=== PATIENT | male | born 1960 ===

== ENCOUNTER 2016-10-17 10:48 | Emergency (ER) | payer OTHER ==
[2016-10-17 10:58] VITALS: BP 163/82
[2016-10-17] MEDS ORDERED: Sodium Chloride 0.9% 1,000 ML IV ONE ×2 (11:36→12:43)
[2016-10-17] MEDS ORDERED: Sodium Chloride 0.9% 10 ML Syringe FLUSH PRN (11:37)
--- NOTE | 2016-10-17 11:41 | EDM.PDOC ---
ED HPI GENERAL MEDICAL PROBLEM - General Chief Complaint: Gastrointestinal Problem Stated Complaint: DIABETIC REACTION Time Seen by Provider: 10/17/16 11:20 Source of Information: Reports: Patient, Old records (recent clinic visit from ) History Limitations: Reports: No limitations - History of Present Illness INITIAL COMMENTS - FREE TEXT/NARRATIVE: 56-year-old male presents for evaluation and treatment of nausea, vomiting, lightheadedness and dizziness. Patient is a type II diabetic. He states that he took his blood sugar at his hotel prior to arrival in the ER and was 372 which prompted his visit today. Patient is not on insulin but is on oral medications for his diabetes. He states his blood sugars normally range in the 90s to low 200s. He denies any recent infection. Current symptoms include nausea, vomiting , lightheadedness, dizziness, feeling jittery and polydipsia. He denies any polyuria, sore throat, earaches or pains, abdominal pain or diarrhea. Patient reports that he had some coffee and some orange juice this morning. Patient was seen in our walk-in clinic yesterday. Was seen for right knee pain. He describes the pain to the lateral right leg. He also reports that he has been having trouble completely extending the knee do to "tightness "in his calf. Patient is from [place] and is here for work. On Wednesday he arrived after a [address] from [place]. He has also noticed some swelling to the anterior , superior and lateral portions of the knee. He's also noticed some numbness along the lateral aspect of his knee but felt this was likely from sciatica. Patient reports in June he fell down some stairs. He was not evaluated for this and ever since then he has had a slight ache to the knee. He feels this is what was causing his knee pain this week. Patient was prescribed some naproxen and tramadol from the walk-in. He last took a tramadol around 5:00 this morning. The patient is scheduled to go home to [place] next Wednesday. - Related Data Allergies Allergy/AdvReac Type Severity Reaction Status Date / Time Penicillins Allergy Rash Verified 10/17/16 10:58 Home Meds: Home Meds Acetaminophen with Codeine [Tylenol with Codeine #3 Tablet] 1 each PO Q6HR #15 tablet 04/29/17 [Rx] Blood Pressure. 10/17/16 [History] atorvaSTATin [Lipitor] 20 mg PO DAILY 10/17/16 [History] metFORMIN [Glucophage] 1,000 mg PO BID 10/17/16 [History] ED ROS GENERAL - Review of Systems Review Of Systems: See Below Constitutional: Reports: malaise, diaphoresis. Denies: fever HEENT: Denies: Ear pain, Sinus problem Endocrine: Reports: high glucose, polydypsia. Denies: polyuria GI/Abdominal: Reports: Nausea, Vomiting. Denies: Abdominal pain, Diarrhea Musculoskeletal: Reports: leg pain (right lateral leg), joint pain (right knee) , joint swelling (right anterior knee superior and lateral) Neurological: Reports: Numbness (right lateral leg) ED EXAM, GENERAL - Physical Exam Exam: See Below Exam Limited By: No limitations General Appearance: alert, WD/WN, no apparent distress Ears: normal external exam Nose: normal inspection Throat/Mouth: Normal inspection, Normal lips, Normal teeth, Normal voice, No airway compromise Neck: normal inspection Respiratory/Chest: no respiratory distress, lungs clear, normal breath sounds Cardiovascular: normal peripheral pulses, regular rate, rhythm, no murmur GI/Abdominal: normal bowel sounds, soft, non tender Extremities: joint swelling (right knee), limited range of motion (able to flex to 90 degrees), other (pain with flexion of the right knee). No: increased warmth Neurological: alert, oriented, normal cognition Psychiatric: normal affect, normal mood Skin Exam: Warm, Dry, Normal color Course - Vital Signs Last Recorded V/S: Last Vital Signs Temp 35.7 C 10/17/16 10:53 Pulse 107 H 10/17/16 10:53 Resp 18 10/17/16 10:53 BP 163/82 H 10/17/16 10:53 Pulse Ox 100 10/17/16 10:53 - Orders/Labs/Meds Labs: Laboratory Tests 10/17/16 10/17/16 10/17/16 Range/Units 10:59 11:00 11:00 WBC 10.43 H (4.23-9.07) K/mm3 RBC 5.01 (4.63-6.08) M/mm3 Hgb 15.0 (13.7-17.5) gm/L Hct 44.3 (40.1-51.0) % MCV 88.4 (79.0-92.2) fl MCH 29.9 (25.7-32.2) pg MCHC 33.9 (32.2-35.5) g/dl RDW Std Deviation 41.6 (35.1-43.9) fL Plt Count 204 (163-337) K/mm3 MPV 10.6 (9.4-12.3) fl Neutrophils % (Manual) 81 H (40-60) % Band Neutrophils % 0 (0-10) % Lymphocytes % (Manual) 17 L (20-40) % Atypical Lymphs % 0 % Monocytes % (Manual) 2 (2-10) % Eosinophils % (Manual) 0 L (0.8-7.0) % Basophils % (Manual) 0 L (0.2-1.2) Platelet Estimate Adequate RBC Morph Comment Normal Puncture Site ABG pH (7.35-7.45) ABG pCO2 (35.0-45.0) mmHg ABG pO2 (80.0-100.0) mmHg ABG HCO3 (22.0-26.0) meq/L ABG O2 Saturation (96.0-97.0) % ABG Base Excess (-2-2.0) Titus Test O2 Delivery Device Sodium 136 (136-145) mEq/L Potassium 3.6 (3.5-5.1) mEq/L Chloride 97 L (98-107) mEq/L Carbon Dioxide 22 (21-32) mEq/L Anion Gap 20.6 H (5-15) BUN 22 H (7-18) mg/dL Creatinine 1.4 H (0.7-1.3) mg/dL Est Cr Clr Drug Dosing 61.56 mL/min Estimated GFR (MDRD) 53 (>60) mL/min BUN/Creatinine Ratio 15.7 (14-18) Glucose 328 H (74-106) mg/dL POC Glucose 317 H (70-105) mg/dL Serum Osmolality 302 H (280-300) mosm/kg Calcium 9.2 (8.5-10.1) mg/dL Magnesium 1.6 L (1.8-2.4) mg/dl Total Bilirubin 1.0 (0.2-1.0) mg/dL AST 29 (15-37) U/L ALT 67 H (16-63) U/L Alkaline Phosphatase 73 (46-116) U/L Total Protein 7.8 (6.4-8.2) g/dl Albumin 4.7 (3.4-5.0) g/dl Globulin 3.1 gm/dL Albumin/Globulin Ratio 1.5 (1-2) Urine Color (Yellow) Urine Appearance (Clear) Urine pH (5.0-8.0) Ur Specific Crouse (1.005-1.030) Urine Protein (Negative) Urine Glucose (UA) (Negative) Urine Ketones (Negative) Urine Occult Blood (Negative) Urine Nitrite (Negative) Urine Bilirubin (Negative) Urine Urobilinogen (0.2-1.0) Ur Leukocyte Esterase (Negative) Urine RBC (0-5) /hpf Urine WBC (0-5) /hpf Ur Epithelial Cells Ur Squamous Epith Cells (0-5) /hpf Urine Bacteria (FEW) /hpf Urine Mucus (FEW) /hpf Ketones (0.0-0.3) mM 10/17/16 10/17/16 10/17/16 Range/Units 11:00 13:34 14:45 WBC (4.23-9.07) K/mm3 RBC (4.63-6.08) M/mm3 Hgb (13.7-17.5) gm/L Hct (40.1-51.0) % MCV (79.0-92.2) fl MCH (25.7-32.2) pg MCHC (32.2-35.5) g/dl RDW Std Deviation (35.1-43.9) fL Plt Count (163-337) K/mm3 MPV (9.4-12.3) fl Neutrophils % (Manual) (40-60) % Band Neutrophils % (0-10) % Lymphocytes % (Manual) (20-40) % Atypical Lymphs % % Monocytes % (Manual) (2-10) % Eosinophils % (Manual) (0.8-7.0) % Basophils % (Manual) (0.2-1.2) Platelet Estimate RBC Morph Comment Puncture Site ABG pH (7.35-7.45) ABG pCO2 (35.0-45.0) mmHg ABG pO2 (80.0-100.0) mmHg ABG HCO3 (22.0-26.0) meq/L ABG O2 Saturation (96.0-97.0) % ABG Base Excess (-2-2.0) Titus Test O2 Delivery Device Sodium (136-145) mEq/L Potassium (3.5-5.1) mEq/L Chloride (98-107) mEq/L Carbon Dioxide (21-32) mEq/L Anion Gap (5-15) BUN (7-18) mg/dL Creatinine (0.7-1.3) mg/dL Est Cr Clr Drug Dosing mL/min Estimated GFR (MDRD) (>60) mL/min BUN/Creatinine Ratio (14-18) Glucose (74-106) mg/dL POC Glucose 248 H (70-105) mg/dL Serum Osmolality (280-300) mosm/kg Calcium (8.5-10.1) mg/dL Magnesium (1.8-2.4) mg/dl Total Bilirubin (0.2-1.0) mg/dL AST (15-37) U/L ALT (16-63) U/L Alkaline Phosphatase (46-116) U/L Total Protein (6.4-8.2) g/dl Albumin (3.4-5.0) g/dl Globulin gm/dL Albumin/Globulin Ratio (1-2) Urine Color Light yellow (Yellow) Urine Appearance Clear (Clear) Urine pH 5.5 (5.0-8.0) Ur Specific Crouse 1.025 (1.005-1.030) Urine Protein Negative (Negative) Urine Glucose (UA) 2+ H (Negative) Urine Ketones 2+ H (Negative) Urine Occult Blood Negative (Negative) Urine Nitrite Negative (Negative) Urine Bilirubin Negative (Negative) Urine Urobilinogen 0.2 (0.2-1.0) Ur Leukocyte Esterase Negative (Negative) Urine RBC Not seen (0-5) /hpf Urine WBC 0-5 (0-5) /hpf Ur Epithelial Cells Not Reportable Ur Squamous Epith Cells 0-5 (0-5) /hpf Urine Bacteria Not seen (FEW) /hpf Urine Mucus Not seen (FEW) /hpf Ketones 0.65 (0.0-0.3) mM 10/17/16 10/17/16 Range/Units 15:00 15:31 WBC (4.23-9.07) K/mm3 RBC (4.63-6.08) M/mm3 Hgb (13.7-17.5) gm/L Hct (40.1-51.0) % MCV (79.0-92.2) fl MCH (25.7-32.2) pg MCHC (32.2-35.5) g/dl RDW Std Deviation (35.1-43.9) fL Plt Count (163-337) K/mm3 MPV (9.4-12.3) fl Neutrophils % (Manual) (40-60) % Band Neutrophils % (0-10) % Lymphocytes % (Manual) (20-40) % Atypical Lymphs % % Monocytes % (Manual) (2-10) % Eosinophils % (Manual) (0.8-7.0) % Basophils % (Manual) (0.2-1.2) Platelet Estimate RBC Morph Comment Puncture Site Lt radial ABG pH 7.42 (7.35-7.45) ABG pCO2 31.4 L (35.0-45.0) mmHg ABG pO2 68.0 L (80.0-100.0) mmHg ABG HCO3 20.0 L (22.0-26.0) meq/L ABG O2 Saturation 93.3 L (96.0-97.0) % ABG Base Excess -3.0 L (-2-2.0) Titus Test Positive O2 Delivery Device Room air Sodium (136-145) mEq/L Potassium (3.5-5.1) mEq/L Chloride (98-107) mEq/L Carbon Dioxide (21-32) mEq/L Anion Gap (5-15) BUN (7-18) mg/dL Creatinine (0.7-1.3) mg/dL Est Cr Clr Drug Dosing mL/min Estimated GFR (MDRD) (>60) mL/min BUN/Creatinine Ratio (14-18) Glucose (74-106) mg/dL POC Glucose 201 H (70-105) mg/dL Serum Osmolality (280-300) mosm/kg Calcium (8.5-10.1) mg/dL Magnesium (1.8-2.4) mg/dl Total Bilirubin (0.2-1.0) mg/dL AST (15-37) U/L ALT (16-63) U/L Alkaline Phosphatase (46-116) U/L Total Protein (6.4-8.2) g/dl Albumin (3.4-5.0) g/dl Globulin gm/dL Albumin/Globulin Ratio (1-2) Urine Color (Yellow) Urine Appearance (Clear) Urine pH (5.0-8.0) Ur Specific Crouse (1.005-1.030) Urine Protein (Negative) Urine Glucose (UA) (Negative) Urine Ketones (Negative) Urine Occult Blood (Negative) Urine Nitrite (Negative) Urine Bilirubin (Negative) Urine Urobilinogen (0.2-1.0) Ur Leukocyte Esterase (Negative) Urine RBC (0-5) /hpf Urine WBC (0-5) /hpf Ur Epithelial Cells Ur Squamous Epith Cells (0-5) /hpf Urine Bacteria (FEW) /hpf Urine Mucus (FEW) /hpf Ketones (0.0-0.3) mM Meds: Medications Discontinued Medications Generic Name Dose Route Start Last Admin Trade Name Freq PRN Reason Stop Dose Admin Sodium Chloride 1,000 mls @ 999 mls/hr 10/17/16 11:36 10/17/16 11:43 Normal Saline IV 10/17/16 12:36 999 mls/hr ONETIME ONE Administration Sodium Chloride 1,000 mls @ 999 mls/hr 10/17/16 12:43 10/17/16 13:15 Normal Saline IV 10/17/16 13:43 999 mls/hr ONETIME ONE Administration Sodium Chloride 10 ml 10/17/16 11:37 10/17/16 11:44 Saline Flush FLUSH 10 ml ASDIRECTED PRN Administration Keep Vein Open - Radiology Interpretation Free Text/Narrative:: Ultrasound to the right leg impression per [facility]: 1. No evidence of DVT. 2. Probable right Pierre's cyst CT Results Date: 10/17/16 - Re-Assessments/Exams Free Text/Narrative Re-Assessment/Exam: 10/17/16 13:00 I reviewed the x-ray results from yesterday's x-ray. Small joint effusion. Lab studies have returned. WBS is mildly elevated at 10.43, hemoglobin is 15.0 platelets are 204. Sodium is 136, potassium 3.6 and chloride is 97. Glucose is 317. Anion gap is 20.6. Creatinine is 1.4. Serum osmolality is mildly elevated at 302. Serum ketones are mildly elevated 0.65. 10/17/16 13:48 bedside blood sugar 248 10/17/16 15:00 Will obtain an ABG to ensure no acidosis. UA is returned with 2+ glucose and 2+ ketones. I reviewed the labs and ultrasound reports with the patient. He is quite dehydrated so I decided to give him a full 2 L of fluid here in the ER. We will plan on discharging him home as long as the ABG is normal. 10/17/16 16:00 Arterial blood gas shows a pH of 7.42, PCO2 of 31.4, PO2 of 68 and a bicarbonate of 20. bedside blood sugar prior to discharge 201. I feel the nausea, vomiting, and dizziness and diaphoresis are likely from the tramadol. I will have him stop this. He reports that he has been very sensitive to pain medications in the past. His elevated blood sugars likely from pain and dehydration. Discharge instructions as documented. Departure - Departure Time of Disposition: 16:00 Disposition: Home, Self-Care 01 Condition: fair Clinical Impression: Pierre's cyst of knee, Dehydration, Elevated blood sugar Prescriptions: Acetaminophen with Codeine [Tylenol with Codeine #3 Tablet] 1 each PO Q6HR #15 tablet Instructions: Hyperglycemia, Dehydration, Adult, [id number], Pierre Cyst Referrals: PCP,None [Primary Care Provider] - Forms: ED Department Discharge Additional Instructions: Stop the tramadol Continue with the knee brace. Ice the knee. Drink plenty of fluids. Continue on the naproxen. Take the tylenol #3 1/2 to 1 tab PO every 6 hours prn sever pain. Do not drive or operate machinery within 12 hours of taking this medication. This medication can be habit forming, I recommend you take as few of these as needed to control your pain. Follow-up with PCP when you return to [place] if your symptoms continue. Please return to the ER should your symptoms change or worsen.
--- NOTE | 2016-10-18 16:49 | US ---
Right lower extremity deep venous ultrasound: Duplex and color flow imaging was obtained of the right common femoral, proximal greater saphenous, superficial femoral, popliteal, posterior tibial and peroneal veins. Left common femoral vein was also evaluated. Findings: Normal phasic flow, augmentation and compression are seen. Fluid collection seen posterior to the knee measuring up to 5.5 cm most likely representing popliteal cyst. Impression: 1. Popliteal cyst. 2. No findings of deep venous thrombosis seen within the right lower extremity or within the left common femoral vein. Diagnostic code #2 I agree with preliminary report issued by [facility] (report finalized on 10/17/16, 3:18 PM Central Time)
== END 2016-10-17 16:16 | disposition home or self-care (01) ==
LOC: JD.ED 10:48
DX: M71.21 Synovial cyst of popliteal space [Baker], right knee (principal); E86.0 Dehydration; E11.9 Type 2 diabetes mellitus without complications; Z88.0 Allergy status to penicillin; Z79.899 Other long term (current) drug therapy
CPT/HCPCS: 36415; 36600; 80053; 81001; 82009; 82803; 82962; 83735; 83930; 85025; 93971; 96360; 96361; 99285; J7040; J7050; 99284